=== PATIENT | female | born 1990 | race Caucasian/White ===

== ENCOUNTER 2020-05-17 14:40 | Outpatient (REF) | payer MEDICARE, MEDICAID, OTHER, SELFPAY | END 2020-05-17 14:41 | disposition home or self-care (01) | LOC: HO.LNP 14:40 | PROVIDERS: Visit Provider Hospitalist | DX: R30.0 Dysuria (principal) | CPT/HCPCS: 87086; 87088; 87186 ==

== ENCOUNTER → 2020-08-14 09:00 | Outpatient (BNVA) | payer MEDICARE, MEDICAID, OTHER, SELFPAY | PROVIDERS: PCP Internal Medicine; Referring Provider Internal Medicine; Visit Provider Student in an Organized Health Care Education/Training Program | DX: Z13.89 Encounter for screening for other disorder (principal) | CPT/HCPCS: Q3014 ==

== ENCOUNTER 2020-10-07 09:16 | Outpatient (REF) | payer MEDICARE, MEDICAID, OTHER, SELFPAY ==
[2020-10-07 11:16] LABS: MANUAL DIFF FLAG NO
[2020-10-07 11:45] LABS: Basophils Percent Auto 0.4 % (0-2); Eosinophils Absolute Auto 0.1 X10*3/uL (0.0-0.4); Eosinophils Percent Auto 1.1 % (0-4); Hematocrit 37.4 % (37-47); Hemoglobin 12.6 g/dl (12.0-16.0); Imm Gran Abs Auto 0.01 X10*3/uL (0.00-0.03); Imm Gran Pct Auto 0.2 % (0.0-0.4); Lymphocytes Absolute Auto 1.9 X10*3/uL (1.2-4.9); Lymphocytes Percent Auto 39.7 % (20-40); Mean Corpuscular HGB Conc 33.7 g/dl (31.0-35.0); Mean Corpuscular Hemoglobin 30.3 pg (27.0-33.0); Mean Corpuscular Volume 89.9 fL (80-98); Monocytes Absolute Auto 0.3 X10*3/uL (0.1-1.2); Monocytes Percent Auto 6.1 % (2-11); Neutrophils Absolute Auto 2.5 X10*3/uL (2.0-8.3); Neutrophils Percent Auto 52.5 % (45-73); Platelet Count 158 X10*3/uL (160-400); Red Blood Count 4.16 X10*6/uL (4.20-5.50); Red Cell Distribution Width 11.6 % (11.0-16.0); White Blood Count 4.7 X10*3/uL (4.8-10.8)
[2020-10-07 11:53] LABS: Alanine Aminotransferase 12 U/L (0-31); Albumin Level 4.5 g/dL (3.5-5.0); Alkaline Phosphatase 59 U/L (39-117); Anion Gap 13 (12-20); Aspartate Amino Transferase 17 U/L (5-31); Bilirubin Total 0.6 mg/dL (0.0-1.0); Blood Urea Nitrogen 9 mg/dL (9-16); C Reactive Protein 0.04 mg/dL (< or = 0.50); Calcium 8.9 mg/dL (8.4-10.2); Carbon Dioxide 27 mmol/L (22-29); Chloride 105 mmol/L (96-108); Estimated Glomerular Filt Rate > 60; Glucose Random 61 mg/dL (60-115); Sodium 141 mmol/L (135-145)
[2020-10-07 11:55] LABS: Glucose Urine UA NEG (NEG); Leukocyte Esterase Urine NEG (NEG); Nitrite Urine NEG (NEG); Urine Blood NEG (NEG); Urine Ketones NEG (NEG); Urine Protein NEG (NEG-TRACE)
[2020-10-07 12:01] LABS: Appearance Urine HAZY; Color Urine YELLOW
[2020-10-07 12:05] LABS: Bacteria Urine TRACE /LPF; Mucus Urine TRACE /LPF; RBC Urine 0 /HPF (0); Squamous Epithelial Cell Urine 2+ /LPF; WBC Urine 0-2 /HPF (0-4)
[2020-10-07 13:07] LABS: Erythrocyte Sedimentation Rate 6 MM/HR (0-20)
[2020-10-08 12:52] LABS: Complement C3 46 mg/dL (83-193)
[2020-10-09 12:38] LABS: Anti DNA DS Antibody 2 IU/mL; SM/Ribonucleoprotein Ab <1.0 NEG AI (<1.0 NEG)
== END 2020-10-07 09:17 | disposition home or self-care (01) ==
LOC: HO.10HDL 09:16
PROVIDERS: Visit Provider Student in an Organized Health Care Education/Training Program
DX: R76.8 Other specified abnormal immunological findings in serum (principal)
CPT/HCPCS: 36415; 80053; 81001; 85025; 85652; 86140; 86160; 86225; 86235

== ENCOUNTER → 2020-10-17 09:39 | Outpatient (BNVA) | payer MEDICARE, MEDICAID, OTHER, SELFPAY | PROVIDERS: PCP Internal Medicine; Visit Provider Student in an Organized Health Care Education/Training Program | DX: Z13.89 Encounter for screening for other disorder (principal) | CPT/HCPCS: Q3014 ==

== ENCOUNTER 2021-07-16 22:42 | Emergency (ER) | payer MEDICARE, MEDICAID, OTHER, SELFPAY ==
[2021-07-16 22:51] VITALS: BP 125/79; PULSE 84; RESP 18; TEMP 36.8; O2SAT 98
[2021-07-16 22:53] VITALS: BMI 23.1
--- NOTE | 2021-07-16 23:29 | ED_ITS ---
HPI - General Adult General Chief complaint: General Medical Stated complaint: anxiety Time Seen by Provider: 07/16/21 23:29 Source: patient Mode of arrival: ambulatory Limitations: no limitations History of Present Illness HPI narrative: Patient with History of anxiety and migraine headache complaining of transient blurred vision which happened earlier today while she was cooking homework on the computer resolved once she start moving again no headache no focal weakness patient very scared asking for CT scan of the head to rule out any tumor Related Data Previous Rx's Medication Instructions Recorded vitamin B12 1,000 mcg-folic acid 1,000 adilia SUBLINGUAL DAILY #90 ea 08/28/20 400 mcg sublingual lozenge vitamin B12 500 mcg-folic acid 400 2 tab PO DAILY #60 tab 09/02/20 mcg tablet Allergies Allergy/AdvReac Type Severity Reaction Status Date / Time sulfamethoxazole Allergy Intermediate HIVES Verified 10/17/20 09:39 [From BACTRIM DS] trimethoprim Allergy Intermediate HIVES Verified 10/17/20 09:39 [From BACTRIM DS] Penicillins Allergy Unknown Hives Verified 10/17/20 09:39 Review of Systems Review of Systems: Yes all other systems are reviewed and are negative [facility] Past Medical History Medical History LESTER positive Anxiety Leukopenia POTS (postural orthostatic tachycardia syndrome) UTI (urinary tract infection) Vertigo Surgical History History of wisdom tooth extraction Family History Family History Maternal Grandmother Lung cancer Father Anxiety Chronic mental illness Mother Chronic mental illness Anxiety Brother In good health Son No problems noted. Son No problems noted. Son No problems noted. Son No problems noted. Daughter No problems noted. Daughter No problems noted. Family/Other Cancer Chronic mental illness Social History Social History Alcohol intake: never Advance Directives: No Advance Directives Information Provided: No Physical Exam Vital Signs: Vital Signs: Last Vital Signs Temp 98.2 F 07/16/21 22:51 Pulse 84 07/16/21 22:51 Resp 18 07/16/21 22:51 BP 125/79 07/16/21 22:51 Pulse Ox 98 07/16/21 22:51 BMI result Body Mass Index 23.1 Appearance: Alert. Oriented X3. No acute distress. Very anxious Eyes: PERRLA, No Nystagmus fundus normal exam ENT: Pharynx normal. Oral Mucosa moist Neck: Normal inspection. Neck supple. CVS: Normal heart rate and rhythm. Pulses normal. Respiratory: No respiratory distress. Equal air entry bilateral, Abdomen: Soft and nontender. Bowel sounds are present, Skin: Skin warm and dry. Normal skin color. Normal skin turgor. Extremities: No lower extremity edema. No calf tenderness Neuro: Oriented X 3. No motor deficit. 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
== END 2021-07-17 | disposition home or self-care (01) ==
PROVIDERS: Emergency Provider Internal Medicine; PCP Internal Medicine
DX: G45.3 Amaurosis fugax (principal); F41.9 Anxiety disorder, unspecified
CPT/HCPCS: 99283

== ENCOUNTER 2021-07-17 11:18 | Outpatient (REF) | payer MEDICARE, MEDICAID, SELFPAY ==
[2021-07-17 13:47] LABS: MANUAL DIFF FLAG NO
[2021-07-17 13:52] LABS: Basophils Percent Auto 0.4 % (0-2); Eosinophils Percent Auto 0.8 % (0-4); Hematocrit 38.3 % (37.0-47.0); Hemoglobin 13.1 g/dl (12.0-16.0); Imm Gran Abs Auto 0.01 X10*3/uL (0.00-0.03); Imm Gran Pct Auto 0.2 % (0.0-0.4); Lymphocytes Absolute Auto 1.4 X10*3/uL (1.2-4.9); Lymphocytes Percent Auto 28.3 % (20-40); Mean Corpuscular HGB Conc 34.2 g/dl (31.0-35.0); Mean Corpuscular Hemoglobin 30.2 pg (27.0-33.0); Mean Corpuscular Volume 88.2 fL (80.0-98.0); Mean Platelet Volume 10.9 fL (9.4-12.3); Monocytes Absolute Auto 0.3 X10*3/uL (0.1-1.2); Monocytes Percent Auto 5.1 % (2-11); Neutrophils Absolute Auto 3.3 x10*3/uL (2.0-8.3); Neutrophils Percent Auto 65.2 % (45-73); Platelet Count 149 X10*3/uL (160-400); Red Blood Count 4.34 X10*6/uL (4.20-5.50); Red Cell Distribution Width 11.9 % (11.0-16.0); White Blood Count 5.1 X10*3/uL (4.8-10.8)
[2021-07-17 14:34] LABS: Alanine Aminotransferase 14 U/L (0-31); Albumin Level 4.5 g/dL (3.5-5.0); Alkaline Phosphatase 68 U/L (39-117); Anion Gap 10 (12-20); Aspartate Amino Transferase 17 U/L (5-31); Bilirubin Total 0.5 mg/dL (0.0-1.0); Blood Urea Nitrogen 9 mg/dL (9-16); Calcium 9.7 mg/dL (8.4-10.2); Carbon Dioxide 26 mmol/L (22-29); Chloride 108 mmol/L (96-108); Cholesterol 163 mg/dL; Estimated Glomerular Filt Rate > 60; Glucose Random 88 mg/dL (60-115); HDL Cholesterol 45 mg/dL; LDL Cholesterol Calculated 108 mg/dl; Sodium 140 mmol/L (135-145); Total Protein 7.2 g/dL (6.5-8.0); Triglycerides 51 mg/dL
[2021-07-17 14:45] LABS: Thyroid Stimulating Hormone 1.33 uIU/mL (0.32-4.0)
[2021-07-17 14:48] LABS: TSH reflex Free T4 1.37 uIU/mL (0.32-4.0)
== END 2021-07-17 11:19 | disposition home or self-care (01) ==
LOC: HO.10HDL 11:18
PROVIDERS: Visit Provider Nurse Practitioner Acute Care
DX: M32.9 Systemic lupus erythematosus, unspecified (principal); G45.3 Amaurosis fugax; Z13.6 Encounter for screening for cardiovascular disorders
CPT/HCPCS: 36415; 80053; 80061; 84443; 85025

== ENCOUNTER 2022-05-20 11:28 | Outpatient (REF) | payer MEDICARE, MEDICAID, SELFPAY ==
[2022-05-20 14:57] LABS: Vitamin D 25-OH Total 30.5 ng/mL (>30)
[2022-05-20 15:11] LABS: Folate 14.9 ng/mL (> or = 4.0); Vitamin B12 222 pg/mL (200-900)
== END 2022-05-20 11:29 | disposition home or self-care (01) ==
LOC: HO.10HDL 11:28
PROVIDERS: Visit Provider Internal Medicine
DX: E53.8 Deficiency of other specified B group vitamins (principal); E55.9 Vitamin D deficiency, unspecified; R01.1 Cardiac murmur, unspecified; R00.2 Palpitations
CPT/HCPCS: 36415; 82306; 82607; 82746

== ENCOUNTER → 2022-06-10 14:54 | Outpatient (REF) | payer MEDICARE, MEDICAID, SELFPAY ==
--- NOTE | 2022-06-10 14:56 | CA_ITS ---
Transthoracic Echocardiogram Patient (Last, First, Middle): Mary Sauceda M Gender: Female Date of : 1990 Age: 31 Procedure Date: 06/10/2022 Procedure Type: Transthoracic Echocardiogram Location: OP Height: 162.56 cm Weight: 66.23 kg BSA: 1.71 m2 Heart Rate: 81 bpm Airline Radio Operator: JEANETTE Referring MD: Ayaka Gomez MD Symptoms: R01.1 - Cardiac murmur, unspecified Study Quality: Adequate ECG Rhythm: Sinus Conclusions: - The left ventricular systolic function is normal. The calculated ejection fraction is 59% by biplane method. - No obvious valvular pathology seen on this study. - There is evidence of a dilated coronary sinus. Findings Left Ventricle Normal left ventricular cavity size. There is normal left ventricular wall thickness. The left ventricular systolic function is normal. The calculated ejection fraction is 59% by biplane method. There is no evidence of regional wall motion abnormalities. Diastolic function is normal for age. Right Ventricle Normal right ventricular cavity size and systolic function. Atria Both atria are normal in size. Aortic Valve There is a normal trileaflet aortic valve. There is no aortic valve stenosis. There is trace (trivial) aortic valve regurgitation. Gradients across the aortic valve were increased; however, no evidence of bicuspid valve or other abnormalities including subvalvular membrane or supravalvular stenosis. Could be from increased stroke volume based on LVOT VTi. Mitral Valve The mitral valve appears normal. There is mild mitral annular calcification. There is no mitral valve regurgitation. There is no mitral valve stenosis. Pulmonic Valve The pulmonic valve is likely normal. Tricuspid Valve Normal tricuspid valve structure. There is trace tricuspid valve regurgitation. There is no evidence of pulmonary hypertension. Great Vessels The asc aorta is normal in size. Venous The inferior vena cava is normal in size and collapses greater than 50% with inspiration. There is evidence of a dilated coronary sinus. Pericardium/Pleural There is no evidence of pericardial effusion. Prior Study Comparison No significant change compared to prior study dated: 09/03/2009. Dilated coronary sinus described in past. Recommendations, Care & Conclusions No obvious valvular pathology seen on this study. Measurements 2D Linear Measurements IVSd: 0.66 0.6-0.9/0.6-1.0 cm LVIDd: 5.42 3.9-5.3/4.2-5.9 cm LVIDd Index: 3.17 2.4-3.2/2.2-3.1 cm/m2 LVIDs: 3.56 2.0-3.6 cm LVPWd: 0.75 0.7-1.1 cm LA Diam: 3.30 2.7-3.8/3.0-4.0 cm LAIDs Index: 1.93 1.5-2.3 cm/m2 LV Mass: 166.35 67-162/88-224 g LV Mass Index: 97.28 43-95/49-115 g/m2 LVOT Diam: 2.10 3.0+(-)1.3 cm 2D Systolic Function EF 4C: 59.30 >55% EF 2C: 60.10 >55% EF BiP: 59.00 >55% Mitral Valve MV Pk E: 1.02 MV PK A: 0.94 MV Decel Time: 156.00 E/A: 1.10 E'Lateral: 14.50 E'Medial: 9.68 E/E' Med: 10.50 E/E' Lat: 7.00 PHT: 46.00 MVA PHT: 4.78 Decel [place]: 6.51 Aortic Valve AoV Pk Jose: 2.50 AoV Mn Jose: 1.68 AoV VTI: 0.39 AoV Pk Grad: 25.00 Aov Mn Grad: 13.00 MINDY Cont.VTI: 2.74 AI Pk Jose: 4.71 AI [place]: 4.21 LVOT LVOT Pk Jose: 1.60 LVOT Mn Jose: 1.06 LVOT VTI: 0.31 LVOT Pk Grad: 10.00 LVOT Mn Grad: 5.00 LVOT Diam: 2.10 LVOT Area: 3.46 Diastolic Function MV Pk E: 1.02 MV Pk A: 0.94 E/A: 1.10 E'Medial: 9.68 E/E' Med: 10.50 E' Laterial: 14.50 E/E' Lat: 7.00 Right Ventricle TAPSE (mm): 24.80 TVS' Jose: 17.30 Tricuspid Valve RA Press: 3.00 Great Vessels Aorta Sinus of Valsalva: 2.90 2.0-3.5 cm Ao Asc: 3.10 2.1-3.4 cm Pulmonary Veins Pulm Vein S/D 0.70 Pulmonary Valve PV Pk Jose: 1.00 Peak PV Grad: 4.00 Updated in Other Vendor System with Status of Final Wolf Chery MD electronically signed on 06/11/2022 12:46:56 PM with status of Final
== END ==
LOC: HO.CARD 14:54
PROVIDERS: PCP Internal Medicine; Visit Provider Internal Medicine
DX: R01.1 Cardiac murmur, unspecified (principal)
CPT/HCPCS: 93306

== ENCOUNTER → 2024-04-05 14:20 | Outpatient (RCR) | payer MEDICARE, MEDICAID, OTHER, SELFPAY ==
[2020-08-28 11:37] VITALS: BP 152/79; PULSE 94; RESP 18; TEMP 37.1; O2SAT 100; BMI 22.8
[2020-08-28 11:43] LABS: MANUAL DIFF FLAG NO
[2020-08-28 11:47] LABS: Basophils Percent Auto 0.7 % (0-2); Eosinophils Percent Auto 0.9 % (0-4); Hematocrit 36.6 % (37-47); Hemoglobin 12.2 g/dl (12.0-16.0); Imm Gran Abs Auto 0.01 X10*3/uL (0.00-0.03); Imm Gran Pct Auto 0.2 % (0.0-0.4); Lymphocytes Absolute Auto 1.8 X10*3/uL (1.2-4.9); Mean Corpuscular HGB Conc 33.3 g/dl (31.0-35.0); Mean Corpuscular Hemoglobin 29.9 pg (27.0-33.0); Mean Corpuscular Volume 89.7 fL (80-98); Mean Platelet Volume 10.1 fL (9.4-12.3); Monocytes Absolute Auto 0.2 X10*3/uL (0.1-1.2); Monocytes Percent Auto 5.2 % (2-11); Neutrophils Absolute Auto 2.5 X10*3/uL (2.0-8.3); Platelet Count 159 X10*3/uL (160-400); Red Blood Count 4.08 X10*6/uL (4.20-5.50); Red Cell Distribution Width 11.5 % (11.0-16.0); White Blood Count 4.6 X10*3/uL (4.8-10.8)
--- NOTE | 2020-08-28 12:00 | MHC.HEMONC ---
Patient here for follow-up. Labs drawn. Clinical summary updated with nurse. Provider seen patient. Follow-up booked and given to patient.
--- NOTE | 2020-08-28 12:08 | P.PNHO_ITS ---
Medical Summary - Medical Summary Date of Service: 08/28/20 Chief complaint: Follow-up Medical Summary: Diagnosis: Mild leukopenia, thrombocytopenia WBC count ranging around 4.2-4.5 in 2011 and 2019. Previously normal between 6- 10 K. Intermittent mild thrombocytopenia. Normal iron studies, no anemia. Negative for HIV and hepatitis serologies. Low vitamin B12, methylmalonic acid not elevated, negative parietal cell and intrinsic factor antibody. LESTER titer 1 in 40, screen positive. Interval History Interval history: Patient is here in follow-up. She is doing well and has no new complaints today. She in her kids have been doing well during this pandemic. She reports no recent infections. Her energy level and appetite are good. She is always trying to gain weight. She has 6 children at home. Review of Systems - Constitutional Denies body aches, Denies chills, Denies fatigue, Denies fever(s) - Cardiovascular Denies chest pain with activity - Respiratory Denies chest congestion, Denies cough, Denies dyspnea - Gastrointestinal Denies change in bowel habits [facility] Medical History: Medical History (Last Updated 08/28/20 @ 11:42 by Alejandrina George RN) LESTER positive Anxiety Leukopenia POTS (postural orthostatic tachycardia syndrome) UTI (urinary tract infection) Family History: Family History (Last Updated 08/28/20 @ 11:42 by Alejandrina George RN) Maternal Grandmother Lung cancer Smoking status: Former smoker Oncology Screenings - ECOG Performance Status ECOG Performance Status: 0 Home Medications and Allergies Home Medications Medication Instructions Recorded Confirmed Type No Known Home Meds 08/14/20 08/28/20 History Allergies Allergy/AdvReac Type Severity Reaction Status Date / Time sulfamethoxazole Allergy Intermediate HIVES Verified 08/28/20 11:43 [From BACTRIM DS] trimethoprim Allergy Intermediate HIVES Verified 08/28/20 11:43 [From BACTRIM DS] penicillin V Allergy Unknown hives Verified 08/28/20 11:43 Penicillins Allergy Unknown UNKNOWN Verified 08/28/20 11:43 Sulfa (Sulfonamide Allergy Unknown hives Verified 08/28/20 11:43 Antibiotics) Exam Vital signs: Vital Signs Temp 98.7 F 08/28/20 11:37 Pulse 94 08/28/20 11:37 Resp 18 08/28/20 11:37 BP 152/79 H 08/28/20 11:37 Pulse Ox 100 08/28/20 11:37 Intake & Output 08/27/20 08/28/20 08/28/20 18:59 06:59 18:59 Other: Weight 60.4 kg Weight 60.4 kg Body Mass Index 22.8 - Constitutional Present: no acute distress - Routine HEENT Exam Head: Present: normal inspection Eye: Present: EOMI - Routine Respiratory Exam Absent: respiratory distress - Routine Cardiovascular Exam Cardiovascular: Present: S1, S2 Data - Labs CBC & Chem 7: 08/28/20 11:35 Labs: 08/28/20 11:35 Complete Blood Count Auto Diff Routine Laboratory Last Values WBC 4.6 X10*3/uL (4.8-10.8) L 08/28/20 11:35 RBC 4.08 X10*6/uL (4.20-5.50) L 08/28/20 11:35 Hgb 12.2 g/dl (12.0-16.0) 08/28/20 11:35 Hct 36.6 % (37-47) L 08/28/20 11:35 MCV 89.7 fL (80-98) 08/28/20 11:35 MCH 29.9 pg (27.0-33.0) 08/28/20 11:35 MCHC 33.3 g/dl (31.0-35.0) 08/28/20 11:35 RDW 11.5 % (11.0-16.0) 08/28/20 11:35 Plt Count 159 X10*3/uL (160-400) L 08/28/20 11:35 MPV 10.1 fL (9.4-12.3) 08/28/20 11:35 Immature Gran % (Auto) 0.2 % (0.0-0.4) 08/28/20 11:35 Neut % (Auto) 55.0 % (45-73) 08/28/20 11:35 Lymph % (Auto) 38.0 % (20-40) 08/28/20 11:35 Hyde % (Auto) 5.2 % (2-11) 08/28/20 11:35 Eos % (Auto) 0.9 % (0-4) 08/28/20 11:35 Baso % (Auto) 0.7 % (0-2) 08/28/20 11:35 Lymph # (Auto) 1.8 X10*3/uL (1.2-4.9) 08/28/20 11:35 Hyde # (Auto) 0.2 X10*3/uL (0.1-1.2) 08/28/20 11:35 Eos # (Auto) 0.0 X10*3/uL (0.0-0.4) 08/28/20 11:35 Baso # (Auto) 0.0 X10*3/uL (0.0-0.2) 08/28/20 11:35 Abs Immat Gran (auto) 0.01 X10*3/uL (0.00-0.03) 08/28/20 11:35 Absolute Neuts (auto) 2.5 X10*3/uL (2.0-8.3) 08/28/20 11:35 Absolute Nucleated RBC 0.000 X10*3/uL (0.0-0.012) 08/28/20 11:35 Nucleated RBC % (auto) 0.0 /100WBC (0.0-0.2) 08/28/20 11:35 Progress Note: A/P (1) Leucopenia Status: Chronic Assessment and plan: 1. This is a pleasant 29-year-old woman with mild leukopenia and thrombocytopenia noted on routine blood work. She is not on any medications that can cause cytopenias. Blood work showed vitamin B12 deficiency, intrinsic factor antibody was negative. Rest of hematological workup was normal. She has mild intermittent leukopenia and thrombocytopenia, autoimmune etiologies possible. She will be started back on vitamin B12 supplementation, she stopped taking it when she ran out. CBC is stable. Follow-up in 1 year. - Time Spent With Patient Total time spent is greater than 50% in coordination of care (as documented) at patient's floor/unit and/or counseling patient: 15 - 24 minutes
[2020-08-28 12:41] LABS: Vitamin B12 229 pg/mL (200-900)
--- NOTE | 2021-09-03 11:36 | HE.ONCSEC ---
Left a message for patient letting her know she missed her apt. on 09/01/21 and to call us to reschedule.
== END | disposition home or self-care (01) ==
LOC: HO.ONC 08-28 11:27
PROVIDERS: PCP Internal Medicine; Visit Provider Internal Medicine
DX: D72.819 Decreased white blood cell count, unspecified (principal); D69.6 Thrombocytopenia, unspecified
CPT/HCPCS: 36415; 82607; 85025; 99214